=== PATIENT | female | born 1955 | race African-American/Black ===

== ENCOUNTER 2018-04-23 10:02 | Day surgery (SDC) | payer MEDICARE, MEDICAID ==
[~2018-04-23] VITALS: Ht 171.4 cm; Wt 67.6 kg
[~2018-04-23 10:02] MED LIST: INDERAL; TRAMADOL; [UNRECOGNIZED DRUG - OTHER]
[2018-04-23] MEDS ORDERED: LACTATED RINGERS 1,000 ML IV SCH (11:00)
[2018-04-23] MEDS ORDERED: SIMETHICONE 40 MG/0.6 ML 30ML ONE (11:04)
[2018-04-23] MEDS ORDERED: IOHEXOL-300 100 ML BOTTLE ONE (11:04)
[2018-04-23 11:23] LABS: INR 1.1; PARTIAL THROMBOPLASTIN TIME 27.1 sec (23.4-31.0); PROTHROMBIN TIME 10.6 sec (9.1-11.1)
[2018-04-23 11:24] LABS: BASOPHILS % 0.8 % (0.0-2.0); EOSINOPHILS % 13.7 % (0.0-5.0); HEMATOCRIT. 42.5 % (36.0-48.0); HEMOGLOBIN. 14.1 g/dL (12.0-16.0); LYMPHOCYTES % 37.3 % (20.0-50.0); MEAN CORPUSCULAR HEMOGLOBIN 31.4 pg (28.0-32.0); MEAN CORPUSCULAR VOLUME 94.5 fL (81.0-99.0); MONOCYTES % 6.5 % (2.0-8.0); NEUTROPHILS % 41.7 % (40.0-76.0); PLATELET 207 x1000/uL (130-400); RED BLOOD CELL COUNT 4.49 mill/uL (4.2-5.4); RED CELL DISTRIBUTION WIDTH 12.9 % (11.6-14.6)
[2018-04-23 11:30] LABS: CHLORIDE 108 mEq/L (98-107)
[2018-04-23] MEDS ORDERED: PROPOFOL 200MG/20ML VIAL IV ONE ×2 (12:00→12:15)
[2018-04-23] MEDS ORDERED: ROCURONIUM BROMIDE 10MG/ML VIAL 5ML IV ONE (12:00)
[2018-04-23] MEDS ORDERED: NEOSTIGMINE METHYLSULFATE 1MG/ML 10 ML VIAL ONE ×2 (12:00→12:15)
[2018-04-23] MEDS ORDERED: MIDAZOLAM HCL 2 MG/2 ML VIAL ONE (12:00)
[2018-04-23] MEDS ORDERED: FENTANYL CITRATE/PF 50MCG/ML 2ML VIAL ONE (12:00)
[2018-04-23] MEDS ORDERED: LIDOCAINE HCL/PF 1% 10 MG/ML 5ML VIAL ONE (12:01)
[2018-04-23] MEDS ORDERED: ONDANSETRON HCL 4MG/2ML INJ ONE (12:01)
[2018-04-23] MEDS ORDERED: CEFAZOLIN SODIUM 1000MG/VIAL ONE (12:01)
[2018-04-23] MEDS ORDERED: SUCCINYLCHOLINE CHLORIDE 200MG/10ML IV ONE (12:01)
[2018-04-23] MEDS ORDERED: SODIUM CHLORIDE 0.9% 10ML VIAL ONE (12:01)
[2018-04-23] MEDS ORDERED: GLYCOPYRROLATE 0.2 MG/ML 2ML VIAL ONE (12:01)
[2018-04-23] MEDS ORDERED: EPHEDRINE SULFATE 50MG/ML VIAL ONE (12:01)
[2018-04-23] MEDS ORDERED: PHENYLEPHRINE HCL 10 MG/ML 1ML (IV VIAL) IV ONE (12:01)
[2018-04-23] MEDS ORDERED: METOCLOPRAMIDE HCL 10MG/2ML VIAL ONE (12:01)
[2018-04-23] MEDS ORDERED: MELO-104 PO (12:44)
[2018-04-23] MEDS ORDERED: LORA10TA7 PO (12:44)
[2018-04-23] MEDS ORDERED: AMLO10TA80 PO (12:44)
[2018-04-23] MEDS ORDERED: ALBU18HF2 IH (12:44)
[2018-04-23] MEDS ORDERED: DIPH25TA23 PO (12:44)
[2018-04-23] MEDS ORDERED: TAP5 PO (12:44)
[2018-04-23] MEDS ORDERED: ASPI-1159 PO (12:44)
[2018-04-23] MEDS ORDERED: ATOR20TA65 PO (12:44)
[2018-04-23] MEDS ORDERED: MOME13HF2 IH (12:44)
[2018-04-23] MEDS ORDERED: CALC-30 PO (12:44)
[2018-04-23] MEDS ORDERED: PROP20TA7 PO (13:06)
[2018-04-23] MEDS ORDERED: MONT10TA21 PO (13:06)
== END 2018-04-23 15:00 | disposition home or self-care (01) ==
LOC: OR 10:02
PROVIDERS: ATTEND Internal Medicine Gastroenterology
DX: K80.50 Calculus of bile duct without cholangitis or cholecystitis without obstruction (principal); I45.10 Unspecified right bundle-branch block
CPT/HCPCS: 36415; 43274; 74328; 80048; 85025; 85610; 85730; 93005; C1726; C1769; C2625; J0330; J0690; J2250; J2370; J2405; J2704; J2710; J2765; J3010; J3490; Q9967